=== PATIENT | female | born 1980 | race Caucasian/White ===

== ENCOUNTER 2019-09-18 05:28 | Day surgery (SDC) | payer SELFPAY ==
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
[2019-09-18] VITALS (9 sets, daily range): BP systolic 87–95; BP diastolic 49–59; PULSE 48–77; RESP 16; TEMP 36.3–37.6; O2SAT 99–100; BMI 23.1
[2019-09-18 06:15] LABS: Internal QC Validated? YES +Cl - CLEAR BKGD; Pregnancy, Urine Negative Negative
[2019-09-18 06:27] LABS: Hematocrit 39.8 % (37-47); Hemoglobin 13.1 g/dL (12.0-15.0); Mean Corp Hgb Conc 32.9 g/dL (32-36); Mean Corpuscular Hgb 30.8 pg (27.0-32.0); Mean Corpuscular Volume 93.4 fL (81-99); Mean Platelet Vol. 9.5 fl (6.2-12.0); Platelet Count 322 K/mm3 (150-450); RBC Distribution Width CV 12.6 % (11.6-14.6); RBC Distribution Width SD 43.1 fl (35.1-43.9); Red Blood Count 4.26 M/mm3 (4.2-5.4); White Blood Count 8.3 K/mm3 (4.4-11.0)
--- NOTE | 2019-09-18 06:28 | EKG12_ITS ---
Test Reason : PREOP Blood Pressure : / mmHG Vent. Rate : 069 BPM Atrial Rate : 069 BPM P-R Int : 146 ms QRS Dur : 096 ms QT Int : 400 ms P-R-T Axes : 056 059 057 degrees QTc Int : 428 ms Normal sinus rhythm Normal ECG When compared with ECG of 02-APR-2012 15:21, No significant change was found Confirmed by SRI DOTSON ([id number]), videotape editor REBECCA STEIN ([id number]) on 09/22/2019 3:16:54 PM Referred By: Luz Matos Confirmed By:SRI DOTSON
[2019-09-18] MEDS: Magnesium Sulfate 4gm/100mL 4 GM/100 ML IV.SOLN. IV (06:30)
[2019-09-18] MEDS: Lactated Ringers 1,000 ML 40 ML IV ×2 (06:31→07:30)
[2019-09-18 06:45] LABS: Bedside Glucose 64 mg/dL (70-110)
[2019-09-18] MEDS: Acetaminophen 500 MG Tablet 1000 MG PO (06:45)
[2019-09-18] MEDS: Phenazopyridine 95 MG Tablet 190 MG PO (06:47)
[2019-09-18] MEDS: Celecoxib 200 MG Capsule 400 MG PO (06:47)
[2019-09-18] MEDS: Enoxaparin 40 MG/0.4 ML Syringe SC (06:48)
[2019-09-18] MEDS: Gabapentin 600 MG Tablet PO (06:48)
[2019-09-18] MEDS: Ondansetron 4 MG/2 ML Vial IV (07:30)
[2019-09-18] MEDS: Scopolamine 1mg/72hr Patch 1 PATCH TRANSDERM. (07:30)
--- NOTE | 2019-09-18 07:30 | HYST_PTH ---
PATIENT: BRITTANY MACHUCA LOC: [facility] [place] U#:[id number] AGE/SX: 39/F ROOM: RE09/18/[address]: Dr. Luz Matos MD : [id number] BED: DIS: 09/18/2019 SPEC #: [id number] RECD: 09/18/19 11:17 STATUS: EFREN REShira #: [id number] JERI: 09/18/19 07:[address]: Luz Matos DEPT: SURGICAL PATHOLOGY RECD BY: Prerna Davis ENTERED: 09/18/19 11:34 SP TYPE: HYSTERECT OTHR DR: Dr. Tristan Duckworth MD Tissues: Uterus, NOS Procedures: Surgery Specimen Level V HEADER OPERATION: Hysterectomy, TLH, salpingectomy PRE-OP DIAGNOSIS: Menorrhagia, dysmenorrhea, adenomyosis TISSUE SUBMITTED: Cervix, uterus and bilateral tubes MICROSCOPIC DIAGNOSIS Uterus, hysterectomy: Cervix - nabothian cysts, focal squamous metaplasia and minimal chronic inflammation. Endometrium - proliferative endometrium. Myometrium - adenomyosis. Right and left fallopian tubes - no pathologic change. AM:jose 09/21/19 MICROSCOPIC DESCRIPTION Slides are reviewed. GROSS DESCRIPTION Received in fixative is one container labeled with the patient's name and designated uterus. The specimen consists of a uterus with attached cervix and two detached fallopian tube segments. The uterus with cervix measures 9.5 x 8.5 x 5 cm and weighs 152.8 gm. The ectocervix is unremarkable. The?cervical os is oval in contour. One Filshie-type clip is attached to the uterus and is intact and complete without breaks or tears. The endocervical canal measures 3.5 cm in length and is grossly unremarkable. The triangular endometrial cavity measures 5.3 x 4 cm. The velvety, light terrell endometrium measures up?to 2.3 cm in thickness. The myometrium measures 2.5 cm in average thickness and is grossly unremarkable. The fallopian tubes have average lengths of 4.5 cm and average diameters of 0.6 cm. Normal fimbriated ends are identified. Plasma Table Operator sections are submitted in eight cassettes as follows: 1 - anterior cervix, 2 - posterior cervix, 3 & 4 - anterior endometrium/ myometrium, 5 & 6 - posterior endometrium/myometrium, 7 - one fallopian tube, 8 - the other fallopian tube. / AM:jose 09/18/19 TC:5 CPT: 12513
[2019-09-18] MEDS: Cefazolin 2 GM in 0.9% Normal Saline 100 ML IV (07:49)
[2019-09-18] MEDS: Bupivacaine 0.5% PF 10 ML VIAL (08:09)
[2019-09-18] MEDS: Lubricating Jelly 60 GM Tube 30 GM TOPICAL (08:58)
--- NOTE | 2019-09-18 09:29 | PCM.OPRPT ---
Report of Operation Date of Procedure: 09/18/19 Pre-Operative Diagnosis: menorrhagia, dysmenorrhea, adenomyosis Post-Operative Diagnosis: same Surgery/Procedure Performed:: TLH, bilateral salpingectomy, cystoscopy Description of Surgical Findings:: enlarged, boggy uterus, normal tubes and ovaries w/ filshie clips on tubes theatre arts professor: Deena Camara Type of Anesthesia:: General Anesthesiologist: Nathan Gee Special Medications: none Specimen's removed: uterus, cervix, bilateral fallopian tubes Drains: none Estimated Blood Loss (mL): 50 Fluids Replaced: 1400 cc lR Description of Procedure: The patient was taken to the operating room where she was prepped and draped in the dorsal lithotomy position. Her arms were tucked to the side and padded and her legs were placed in the yellowfin stirrups. Care was taken to ensure that she was placed in a neurologically safe and neutral position. A weighted speculum was placed in the vagina and the anterior lip of the cervix was grasped with a single-tooth tenaculum. The cervix sounded to 9 centimeters. 2-0 Vicryl sutures were secured to the cervix at 3 and 9:00. The adventicula uterine 3.5 cm manipulator placed into the cervix and the balloon inflated. The stay sutures were placed through the cup and secured down to the cervix. Once the manipulator was secured to the cervix the Sanchez catheter was placed to straight drain. Attention was turned to the abdominal portion of the case. Before skin incisions were made they were infiltrated with 0.5% Marcaine solution for local anesthetic. A 5 mm intraumbilical incision was made and while tenting the anterior abdominal wall up with towel clamps a 5 mm blade less trocar and sleeve were advanced directly into the peritoneal cavity using the Visiport. Peritoneal placement was confirmed with the laparoscope the pneumoperitoneum was created, and the underlying abdominal contents were intact. The patient was placed in Trendelenburg and the above findings were noted. Right and left lateral 5 mm trochars were placed under direct visualization without difficulty. The filmy adhesions of the anterior abdominal wall were taken down with the LigaSure device. The adhesions of the anterior abdominal wall to the uterus were then taken down with the LigaSure device. The antimesenteric portion of the tube was clamped sealed and transected serially on both sides with the LigaSure device. The round ligaments were clamped sealed and transected and a window was made in the peritoneum. The utero-ovarian ligaments were then clamped sealed and transected with the LigaSure device and the pedicles were hemostatic The bladder flap was dissected down with the LigaSure device and blunt dissection and the uterine arteries were then skeletonized. The uterine arteries were clamped sealed and transected on both sides with the LigaSure device. Then along the cardinal ligament uterine arteries adjacent to the cervix were clamped sealed and transected with the LigaSure device to move them away from the vaginal cuff angle. At this point the pedicles were all examined and found to be hemostatic. The bladder flap was rechecked and found to be adequately down. The monopolar tip of the LigaSure device was then used to enter the anterior vagina. The vaginal manipulator cup was noted in the vaginal colpotomy incision was made circumferentially around the cup. When the 3 and 9:00 positions of the cervicovaginal junction were reached these were clamped sealed and transected with the LigaSure device to secure any small remaining vessels. At this point the pedicles were hemostatic from above and attention was turned to the vaginal portion of the case again. The uterus was brought intact out through the vaginal colpotomy incision. There is some bleeding from the left vaginal cuff angle and this was grasped with an Allis clamp. Vaginal angle sutures were placed on both sides with 0 Vicryl sutures and care was taken to ensure that the uterosacral ligament was secured into this stitch. A Clements's culdoplasty was performed with a 2-0 PDS suture. The remainder the vagina was then closed horizontally with interrupted 0 Vicryl sutures. Clements suture was cinched down. The cuff was hemostatic vaginally. The vaginal length and caliber was normal. The Sanchez catheter was removed and a cystoscopy was performed. The bladder appeared normal and was intact. Both ureteral orifices were noted and both ureteral jets were seen. The cystoscope was removed and the Sanchez catheter was placed back to straight drain. A sponge stick was placed in the vagina to help place traction against the vaginal cuff and the pneumoperitoneum was re-created. The pedicles were reexamined and found to be hemostatic. The vaginal cuff was hemostatic. Some Wolfgang was placed over the cuff and the pedicles and no active bleeding was noted through the Wolfgang. The right and left lateral ports were taken out and the sites were hemostatic. The pneumoperitoneum was released and even under low pressure there was no bleeding of any of the pedicles are vaginal cuff. The umbilical port was removed. The umbilical skin incisions were closed with Monocryl suture and skin glue by Dr. Almonte. The vaginal instruments were removed by me and a vaginal sweep was completed by me. The surgery was performed by me with assistance other than the portions dictated as above. There were no qualified residents available for this procedure. All sponge lap and needle counts were correct and the patient was transferred to the recovery room in stable condition. Grafts/Implants Used: none - Complications none - Admit VTE Documentation VTE Present on Admission: No VTE Mechan Device Prophylaxis: SCD's VTE Pharm Prophylaxis ordered?: No Reason prophylaxis not ordered:: Procedure Not Indicated
--- NOTE | 2019-09-18 09:36 | PCM.DC.AHY ---
Discharge Diet: No Restrictions Discharge Activity: Return to Normal Activity, May Not Drive - while taking narcotic pain medications., May Shower May resume sexual activity in: 6-8 weeks Call your doctor if your incision/area has: Continuous Slow Oozing, Sudden Increased Bleeding, Increased Pain/ Swelling, Increased Redness, Foul Smelling Discharge Call your doctor if you observe: Fever of 101 or Higher, Inability to urinate, Inability to have a bowel movement, Using more than one pad per hour Additional Instructions: Take 1000 mg of Tylenol every 6 hours, use 400 mg of ibuprofen every 8 hours. Then use the oxycodone as needed for breakthrough pain. Skin incisions have skin glue, can get wet. Leave them on for at least 10 days Allergies/Adverse Reactions: Allergies penicillin G Adverse Reaction (Verified 09/18/19 06:10) Other Medications to take at Discharge Acyclovir [Zovirax] 400 mg PO PRN PRN 09/11/19 Docusate Sodium [Colace] 100 mg PO BID PRN PRN #20 cap 09/18/19 Oxycodone [Oxyir] 5 mg PO Q4H PRN PRN 7 Days #28 tablet 09/18/19 The following prescriptions were given: Docusate Sodium [Colace] 100 mg PO BID PRN PRN #20 cap PRN Reason: Constipation Transmission Status: Pending to [facility] Oxycodone [Oxyir] 5 mg PO Q4H PRN PRN 7 Days #28 tablet PRN Reason: severe pain Transmission Status: Sent to [facility] Primary Care Physician: Tristan Duckworth MD [Primary Care Provider] - Test Results: Test results from this visit will be discussed in further detail at your follow-up appointment, if applicable. Please Follow Up With: Luz Matos MD - [phone] When: 1-2 and 6 weeks or as needed
[2019-09-18 09:45] LABS: Bedside Glucose 101 mg/dL (70-110)
[2019-09-18] MEDS: Ketorolac 30 MG/ML Syringe IV (11:02)
== END 2019-09-18 12:34 | disposition home or self-care (01) ==
LOC: SDC 05:29 → AC 05:31
PROVIDERS: Family Provider Family Medicine; PCP Family Medicine; Referring Provider Obstetrics & Gynecology; Visit Provider Obstetrics & Gynecology
PROC: 0UT94ZZ Resection of Uterus, Percutaneous Endoscopic Approach (ICD-10-PCS; CPT 58571; principal; 2019-09-18 07:10)
DX: N94.6 Dysmenorrhea, unspecified (principal); N92.0 Excessive and frequent menstruation with regular cycle; N85.8 Other specified noninflammatory disorders of uterus; F17.210 Nicotine dependence, cigarettes, uncomplicated
CPT/HCPCS: 58571; 81025; 82962; 85027; 86850; 86900; 86901; 88307; 93005; J7120; J2405